=== PATIENT | male | born 1990 | race Caucasian/White ===

== ENCOUNTER 2017-09-19 09:46 | Inpatient (IN) | payer SELFPAY ==
[~2017-09-19] VITALS: Ht 177.8 cm; Wt 72.6 kg
[2017-09-19] MEDS ORDERED: NACL 0.9% 1,000 ML IV ONE ×2 (09:50→10:16)
[2017-09-19] MEDS ORDERED: ONDANSETRON HCL 4 MG/2 ML VIAL IVP ONE ×3 (10:00→10:30)
[2017-09-19 10:07] VITALS: BP_SYST 159
--- NOTE | 2017-09-19 10:14 | NUR ---
Pt report received from HUGO Rivers. Pt c/o epigastric pain with N/V/D with chills since 0500 this AM. No active vomiting noted at this time.
--- NOTE | 2017-09-19 10:14 | NUR ---
Patient to ER bed 4 to gown for evaluation. Side rails up. Report given to Yahir ARIAS.
[2017-09-19 10:23] LABS: BASOPHILS # (AUTO) 0.2 K/uL (0.0-0.2); BASOPHILS % (AUTO) 3.3 % (0.0-2.0); CALCIUM 9.4 mg/dL (8.4-11.0); CREATININE 0.89 mg/dL (0.55-1.30); EOSINOPHILS # (AUTO) 0.2 K/uL (0.0-0.4); EOSINOPHILS % (AUTO) 3.1 % (0.0-4.0); HEMATOCRIT 52.2 % (36-54); HEMOGLOBIN 17.9 g/dL (14.0-18.0); LYMPHOCYTES # (AUTO) 1.5 K/uL (1.0-5.5); LYMPHOCYTES % (AUTO) 29.5 % (20.5-51.5); MEAN CORPUSCULAR HEMOGLOBIN 31 pg (27-31); MEAN CORPUSCULAR HGB CONC 34 % (32-36); MEAN CORPUSCULAR VOLUME 91 fL (79.0-98.0); MONOCYTES # (AUTO) 0.5 K/uL (0.0-1.0); NEUTROPHILS # (AUTO) 2.8 K/uL (1.8-7.7); NEUTROPHILS % (AUTO) 54.1 % (40.0-70.0); PLATELET COUNT (AUTO) 282 K/uL (130-430); POTASSIUM 3.8 mmol/L (3.5-5.1); RED BLOOD CELL COUNT(AUTO) 5.72 MIL/uL (4.2-6.2); WHITE BLOOD COUNT (AUTO) 5.2 K/uL (4.8-10.8)
[2017-09-19 10:27] LABS: PROTHROMBIN TIME 10.1 SECS (9.5-12.5)
[2017-09-19 10:30] LABS: ALBUMIN 4.4 g/dL (3.4-4.8); TOTAL BILIRUBIN 0.8 mg/dL (0.0-1.0)
[2017-09-19] MEDS ORDERED: FOLIC ACID 1 MG, THIAMINE HCL 100 MG, MAGNESIUM SULFATE 1 GM, MVI 10 ML in NACL 0.9% 1,... IV ONE (10:30)
[2017-09-19] MEDS ORDERED: LORazepam 2 MG/ML VIAL (FOR ER USE) IVP ONE (10:30)
--- NOTE | 2017-09-19 10:30 | NUR ---
Dr. Davidson at bedside to assess pt.
--- NOTE | 2017-09-19 11:30 | NUR ---
Pt resting with eyes closed, even and non-labored respirations, NAD.
[2017-09-19 11:47] LABS: BILIRUBIN,URINE NEGATIVE (NEGATIVE); BLOOD, URINE NEGATIVE (NEGATIVE); CLARITY/URINE CLEAR (CLEAR); COLOR,URINE YELLOW (YELLOW); GLUCOSE,URINE NEGATIVE (NEGATIVE); KETONES,URINE 1+ (NEGATIVE); LEUKOCYTE ESTERASE ,URINE NEGATIVE (NEGATIVE); NITRITE, URINE NEGATIVE (NEGATIVE); PH,URINE 7.5 (5.0-8.0); PROTEIN URINE NEGATIVE (NEGATIVE); UROBILINOGEN,URINE 0.2 (0.2-1.0)
[2017-09-19 12:02] LABS: BARBITURATE, URINE NEGATIVE (NEG <=200); BENZODIAZEPINE, URINE NEGATIVE (NEG <=150); CANNABINOID, URINE POSITIVE (NEG <=50); COCAINE, URINE POSITIVE (NEG <=150); METHAMPHETAMINES SCREEN,URINE NEGATIVE (NEG <=500); OPIATE, URINE NEGATIVE (NEG <=100); PHENCYCLIDINE SCREEN,URINE NEGATIVE (NEG <=25); UR TRICYCLIC ANTIDEPRESSANTS NEGATIVE (NEG <=300); URINE AMPHETAMINE NEGATIVE (NEG <=500); URINE METHADONE NEGATIVE (NEG <=200); URINE OXYCODONE SCREEN NEGATIVE (NEG <=100); URINE PROPOXYPHENE SCREEN NEGATIVE (NEG <=300)
[2017-09-19] MEDS ORDERED: D5NS 500 ML IV SCH (13:30)
--- NOTE | 2017-09-19 13:47 | NUR ---
Patient will be admitted to care of Dr. Velasquez. Admitted to Med/Surg unit. Will go to room 106B. Belongings list completed. Summary report printed. Bedside report given to HUGO Fang.
--- NOTE | 2017-09-19 13:47 | NUR ---
ADMISSION NOTE Received patient from ER via francis, received report from LETICIA ARIAS. Patient admitted with diagnosis of ETOH/PANCREATITIS. Patient oriented to hospital routine, call light, toileting and safety-patient verbalized understanding.
[2017-09-19 13:53] VITALS: BP_SYST 124
[2017-09-19] MEDS ORDERED: LEVO88TA5 PO (14:09)
--- NOTE | 2017-09-19 14:10 | NUR ---
Alert/oriented x4 , denies any abdominal pain with occasional cough , instructed NPO with IV fluid infusing well, plan of care , safety discussed with patient verbalized understanding.call light with patient , needs attended.
[2017-09-19] MEDS ORDERED: ONDANSETRON HCL 4 MG/2 ML VIAL IVP PRN (14:45)
[2017-09-19] MEDS ORDERED: LORazepam 2 MG/ML VIAL IVP PRN (14:45)
[2017-09-19] MEDS ORDERED: POTASSIUM CHLORIDE 20 MEQ TAB.PRT.SR PO PRN (14:45)
[2017-09-19] MEDS ORDERED: MUPIROCIN 2% TOPICAL OINTMENT 22 GM NS PRN (14:45)
[2017-09-19] MEDS ORDERED: MORPHINE 2 MG/ML INJ. SYRINGE IVP PRN ×2 (14:45)
[2017-09-19] MEDS ORDERED: ZOLPIDEM TARTRATE 5 MG TABLET PO PRN (14:45)
[2017-09-19] MEDS ORDERED: DOCUSATE SODIUM 100 MG CAPSULE PO PRN (14:45)
[2017-09-19] MEDS ORDERED: MAGNESIUM SULFATE 50 ML IV PRN (14:45)
[2017-09-19] MEDS ORDERED: ACETAMINOPHEN 325 MG TABLET PO PRN (14:45)
--- NOTE | 2017-09-19 14:45 | NUR ---
NEW ADMISSION: LATE ENTRY DUE TO PATIENT CARE: PATIENT IS ALERT, ORIENTED X4, DENIES ANY PAIN OR DISCOMFORT. HE IS NPO, ON BANANA BAG IVF @ 250 ML/HR, NORMAL SALINE BOLUS FROM ER, INFUSING VIA LEFT AC # 20G. HE IS HAVING DRY COUGH, AND ASKING FOR WATER. WILL CALL MD FOR DIET ORDER.
[2017-09-19 14:56] VITALS: BP_SYST 124
--- NOTE | 2017-09-19 15:11 | NUR ---
DIET ORDER: CALL REGARDING PATIENT CONDITION AND DIET ORDER. HE HAS ORDERED TO START REGULAR DIET, BUT AFTER ABDOMINAL US. THEN HE WILL SEE THE PATIENT TOMORROW.
--- NOTE | 2017-09-19 16:20 | NUR ---
RN round: Patient is resting on bed, playing games on his cellphone, no sign of distress. Still NPO for abdominal US, The same IVF infusing.
--- NOTE | 2017-09-19 17:45 | NUR ---
ABDOMINAL ULTRASOUND IS DONE AT BEDSIDE.
--- NOTE | 2017-09-19 18:13 | NUR ---
DIET: ABDOMINAL US WAS DONE AT BEDSIDE. START PATIENT WITH REGULAR DIET, BUT PATIENT IS SLEEPING , AND REFUSES TO EAT AT THIS TIME. CONTINUE THE SAME IVF.
[2017-09-19] MEDS: D5NS 1,000 ML IV SCH (18:30)
--- NOTE | 2017-09-19 18:45 | NUR ---
NEW IVF: IVF FROM ER DONE. START A NEW IVF, D5NS, INFUSING AT 100 ML/HR ORDERED. NO SIGN OF INFILTRATION.
--- NOTE | 2017-09-19 18:49 | NUR ---
CLOSING NOTE: PATIENT IS STABLE , NO COMPLIANT OF PAIN OR DISCOMFORT, ON D5NS IVF @ 100 ML/HR.
--- NOTE | 2017-09-19 19:30 | NUR ---
initial notes: seen pt on bed, watching tv. alert, awake, oriented. stable. with on going ivf well. at bedside. instructed to call for assistance. call light in reach. lowest bed position. side rails up.
[2017-09-19 19:59] VITALS: BP_SYST 130
--- NOTE | 2017-09-19 20:30 | NUR ---
Initial Note Received report from HUGO Donahue. Sleeping but easily arousable. No SOB noted. Denies any pain or n/v at this time. IVF infusing. Skin intact. No peripheral edema noted. Neuro and circulation WNL. Patient wants to go home and will be endorsed tomorrow. Needs attended. Call light within reach. Kept warm and comfortable.
--- NOTE | 2017-09-19 20:30 | NUR ---
transfer care to rufina ortega.
--- NOTE | 2017-09-19 22:00 | NUR ---
RN Note Sleeping at this time. No distress noted.
--- NOTE | 2017-09-20 | NUR ---
RN Note Sleeping but easily arousable. IVf infusing. No complain of SOB or n/v Repositions self. Kept warm and comfortable.
[2017-09-20 00:24] VITALS: BP_SYST 118
--- NOTE | 2017-09-20 02:00 | NUR ---
RN Note Patient sleeping comfortably in bed. IVf infusing. No acute distress at this time.
--- NOTE | 2017-09-20 04:00 | NUR ---
RN Note Awake, alert and oriented. No complain of pain, n/v or SOB at this time. Ambulated to the bathroom with steady gait and back to bed. IVF infusing. Needs attended. Call light within reach. Kept warm and comfortable.
[2017-09-20] MEDS: D5NS 1,000 ML IV SCH (04:01)
[2017-09-20 05:21] VITALS: BP_SYST 122
--- NOTE | 2017-09-20 06:16 | NUR ---
End Note Afebrile. Vital signs stable. No changes from previous assessment. No complain of SOB, pain or n/v throughout the night. Ambulates well with steady gait. IVF infusing. Neuro and circulation WNL. Care and monitoring per protocol. Needs attended. Patient wants to go home today. Will endorse. Call light within reach. Kept warm and comfortable.
[2017-09-20 07:30] LABS: ALBUMIN 3.6 g/dL (3.4-4.8); BILIRUBIN,DIRECT 0.3 mg/dL (0.0-0.3); TOTAL BILIRUBIN 1.7 mg/dL (0.0-1.0)
--- NOTE | 2017-09-20 07:55 | NUR ---
Initial notes: patient on bed awake, alert and oriented. Stable. I.V. access patent. Safety measures in placed. Call light within reach. Report received at bedside.
--- NOTE | 2017-09-20 08:30 | NUR ---
Joao rounds: Seen by Dr. Velasquez and talk to pt with D/C order.
[2017-09-20 09:03] VITALS: BP_SYST 122
--- NOTE | 2017-09-20 09:04 | NUR ---
rounds: no n/v. denies abdominal pain.
[2017-09-20 09:08] VITALS: BP_SYST 122
== END 2017-09-20 09:40 | disposition home or self-care (01) | DRG 93 ==
LOC: SED 09:46 → SMU 13:26
PROVIDERS: ADMIT General Practice; ATTEND General Practice
DX: G92 Toxic encephalopathy (principal); K76.0 Fatty (change of) liver, not elsewhere classified; R16.0 Hepatomegaly, not elsewhere classified; F19.10 Other psychoactive substance abuse, uncomplicated
CPT/HCPCS: 36415; 76700-TC; 80053; 80076; 80307; 81003; 82150-TC; 83690-TC; 85025; 85610-TC; 85730-TC; 96361; 96365; 96375; 99285; G0482; J2060; J2405; J3411; J3475; J3490; J7030; J7042

== ENCOUNTER 2018-02-23 19:50 | Emergency (ER) | payer SELFPAY ==
[~2018-02-23] VITALS: Ht 177.8 cm; Wt 74.8 kg
[~2018-02-23 19:50] MED LIST: LEVO88TA5 PO
[2018-02-23 20:00] VITALS: BP_SYST 152
[2018-02-23] MEDS ORDERED: CEPHALEXIN 500 MG CAPSULE PO ONE (20:30)
[2018-02-23 21:07] VITALS: BP_SYST 150
== END 2018-02-23 21:07 | disposition home or self-care (01) ==
LOC: SED 19:50
DX: L02.214 Cutaneous abscess of groin (principal)
CPT/HCPCS: 87070-TC; 99283

== ENCOUNTER 2021-03-12 18:07 | Emergency (ER) | payer SELFPAY ==
[~2021-03-12] VITALS: Ht 177.8 cm; Wt 77.1 kg
[2021-03-12 18:19] VITALS: BP_SYST 154
[2021-03-12] MEDS ORDERED: KETOROLAC TROMETHAMINE 60 MG/2 ML VIAL IM ONE (18:30)
[2021-03-12 18:55] VITALS: BP_SYST 154
== END 2021-03-12 18:56 | disposition home or self-care (01) ==
LOC: SED 18:07
DX: M25.512 Pain in left shoulder (principal); Y04.0XXA Assault by unarmed brawl or fight, initial encounter; Y93.89 Activity, other specified; Y92.89 Other specified places as the place of occurrence of the external cause; Y99.8 Other external cause status
CPT/HCPCS: 73030; 96372; 99283; J1885